=== PATIENT | male | born 1955 | race Caucasian/White ===

== ENCOUNTER 2023-01-25 13:02 | Observation (INO) ==
[2023-01-25 15:06] LABS: BASOPHILS % (AUTO) 0.4 % (0.2-1.0); EOSINOPHILS # (AUTO) 0.3 x10^3/uL (0.0-0.2); EOSINOPHILS % (AUTO) 4.4 % (0.9-2.9); HEMATOCRIT 42.3 % (42.0-54.0); HEMOGLOBIN 14.4 g/dL (13.5-18.0); LYMPHOCYTES # (AUTO) 2.5 X10^3/uL (1.3-2.9); LYMPHOCYTES % (AUTO) 32.4 % (21.0-51.0); MEAN CORPUSCULAR HEMOGLOBIN 29.4 pg (27.0-34.0); MEAN CORPUSCULAR VOLUME 86.5 fL (80.0-100.0); MEAN PLATELET VOLUME 7.4 fL (7.4-11.0); MONOCYTES # (AUTO) 0.7 x10^3/uL (0.3-0.8); MONOCYTES % (AUTO) 9.4 % (0.0-13.0); NEUTROPHILS # (AUTO) 4.2 x10^3/uL (2.2-4.8); NEUTROPHILS % (AUTO) 53.4 % (42.0-75.0); RED BLOOD COUNT 4.89 X10^6/uL (4.7-6.0); RED CELL DISTRIBUTION WIDTH 13.4 % (11.6-16.5); WHITE BLOOD COUNT 7.8 X10^3/uL (3.6-10.0)
[2023-01-25 16:08] LABS: ALANINE AMINOTRANSFERASE 25 Units/L (12-78); ALBUMIN 3.7 g/dL (3.4-5.0); ALKALINE PHOSPHATASE 92 Units/L (46-116); ASPARTATE AMINO TRANSFERASE 24 Units/L (15-37); BLOOD UREA NITROGEN 18 mg/dL (7-18); CARBON DIOXIDE 29.6 mmol/L (21-32); CHLORIDE 105 mmol/L (98-107); CREATININE 1.12 mg/dL (0.70-1.30); SODIUM 140 mmol/L (136-145); TOTAL PROTEIN 7.2 g/dL (6.4-8.2); eGFR NON BLACK RACES > 60 (>60)
[2023-01-25 16:19] VITALS: BMI 29.9
[2023-01-25] MEDS: PROTONIX TAB 40 MG PO SCH (16:19)
[2023-01-25] MEDS: ASPIRIN PO SCH (16:19)
[2023-01-25] MEDS: NS 1,000 ML IV 1,000 ML IV SCH (16:20)
--- NOTE | 2023-01-25 16:33 | EKG ---
Test Reason : chest pain Blood Pressure : */* mmHG Vent. Rate : 58 BPM Atrial Rate : 58 BPM P-R Int : 178 ms QRS Dur : 78 ms QT Int : 442 ms P-R-T Axes : 56 -31 41 degrees QTc Int : 433 ms Sinus bradycardia Left axis deviation Abnormal ECG No previous ECGs available Confirmed by Parth Del Angel ([id number]) on 01/27/2023 8:37:33 AM Referred By: Confirmed By: Parth Del Angel
--- NOTE | 2023-01-25 19:33 | EKG ---
Test Reason : chest pain Blood Pressure : */* mmHG Vent. Rate : 61 BPM Atrial Rate : 61 BPM P-R Int : 182 ms QRS Dur : 82 ms QT Int : 434 ms P-R-T Axes : 67 -24 61 degrees QTc Int : 436 ms Normal sinus rhythm Normal ECG When compared with ECG of 25-JAN-2023 16:23, (Unconfirmed) No significant change was found Confirmed by Parth Del Angel ([id number]) on 01/27/2023 8:36:47 AM Referred By: Confirmed By: Parth Del Angel
[2023-01-25 20:16] LABS: CHOL/HDL RATIO 4.8 (0.0-5.0)
[2023-01-25] MEDS ORDERED: TYLENOL 500 MG TAB EXTRA STRENGTH PO PRN (20:35)
[2023-01-25] MEDS ORDERED: GARLIC 500 MG PO SCH (21:00)
[2023-01-25] MEDS ORDERED: COD LIVER OIL PO SCH (21:00)
[2023-01-25] MEDS ORDERED: [UNRECOGNIZED DRUG - OTHER] PO SCH (21:00)
[2023-01-25] MEDS ORDERED: PATIENT'S HOME MEDICATION (Zinc 50 mg Capsule) PO SCH (21:00)
[2023-01-25] MEDS ORDERED: ASCORBATE CALCIUM 500 MG PO SCH (21:00)
[2023-01-25] MEDS ORDERED: LIPITOR TAB 10 MG PO SCH (21:00)
[2023-01-25] MEDS ORDERED: PRASTERONE 50 MG PO SCH (21:00)
[2023-01-25] MEDS ORDERED: ZANAFLEX PO SCH (21:00)
[2023-01-25] MEDS: COSOPT OPTH OP SCH (21:27)
[2023-01-25] MEDS: XANAX PO SCH (21:27)
--- NOTE | 2023-01-26 00:12 | EKG ---
Test Reason : chest pain Blood Pressure : */* mmHG Vent. Rate : 70 BPM Atrial Rate : 70 BPM P-R Int : 178 ms QRS Dur : 78 ms QT Int : 426 ms P-R-T Axes : 67 -49 55 degrees QTc Int : 460 ms Sinus rhythm with occasional premature ventricular complexes Left anterior fascicular block Abnormal ECG When compared with ECG of 25-JAN-2023 19:27, (Unconfirmed) premature ventricular complexes are now present Confirmed by Parth Del Angel ([id number]) on 01/27/2023 8:36:41 AM Referred By: Confirmed By: Parth Del Angel
[2023-01-26] MEDS: NS 1,000 ML IV 1,000 ML IV SCH ×2 (03:04→04:38)
[2023-01-26 05:09] LABS: BASOPHILS % (AUTO) 0.4 % (0.2-1.0); EOSINOPHILS # (AUTO) 0.3 x10^3/uL (0.0-0.2); EOSINOPHILS % (AUTO) 3.9 % (0.9-2.9); HEMOGLOBIN 13.4 g/dL (13.5-18.0); LYMPHOCYTES # (AUTO) 2.3 X10^3/uL (1.3-2.9); LYMPHOCYTES % (AUTO) 26.8 % (21.0-51.0); MEAN CORPUSCULAR HEMOGLOBIN 29.7 pg (27.0-34.0); MEAN CORPUSCULAR HGB CONC 34.4 g/dL (33.0-35.0); MEAN CORPUSCULAR VOLUME 86.3 fL (80.0-100.0); MEAN PLATELET VOLUME 7.5 fL (7.4-11.0); MONOCYTES # (AUTO) 0.9 x10^3/uL (0.3-0.8); MONOCYTES % (AUTO) 10.4 % (0.0-13.0); NEUTROPHILS # (AUTO) 4.9 x10^3/uL (2.2-4.8); NEUTROPHILS % (AUTO) 58.5 % (42.0-75.0); RED BLOOD COUNT 4.52 X10^6/uL (4.7-6.0); RED CELL DISTRIBUTION WIDTH 13.3 % (11.6-16.5); WHITE BLOOD COUNT 8.4 X10^3/uL (3.6-10.0)
[2023-01-26 05:24] LABS: ALANINE AMINOTRANSFERASE 19 Units/L (12-78); ALBUMIN 3.2 g/dL (3.4-5.0); ALKALINE PHOSPHATASE 79 Units/L (46-116); ASPARTATE AMINO TRANSFERASE 16 Units/L (15-37); BLOOD UREA NITROGEN 16 mg/dL (7-18); CALCIUM 8.6 mg/dL (8.5-10.1); CARBON DIOXIDE 27.6 mmol/L (21-32); CHLORIDE 106 mmol/L (98-107); COR CA(FOR HYPOALB) 9.2 mg/dL (8.5-10.1); CREATININE 1.01 mg/dL (0.70-1.30); SODIUM 140 mmol/L (136-145); TOTAL PROTEIN 6.2 g/dL (6.4-8.2); eGFR NON BLACK RACES > 60 (>60)
--- NOTE | 2023-01-26 06:03 | RAD ---
HISTORYCHEST PAINSTUDNORMA, PA/LAT ADULTCOMPARISONNoneFINDINGSThe cardiomediastinal silhouette is normal in size. Mild elevation of the right hemidiaphragm. No acute airspace disease. No pneumothorax or effusion. The bony thorax appears intact.IMPRESSIONNo acute cardiopulmonary disease.Electronically signed by: DOROTA SOTO (Jan 26, 2023 06:02:22)
[2023-01-26] MEDS: PROTONIX TAB 40 MG PO SCH (08:42)
[2023-01-26] MEDS: XANAX PO SCH (08:42)
[2023-01-26] MEDS: ASPIRIN PO SCH (08:53)
[2023-01-26] MEDS: COSOPT OPTH OP SCH (08:53)
[2023-01-26 08:55] VITALS: BP 127/75
[2023-01-26] MEDS ORDERED: MV MN FOLIC LUTEIN HERBAL PO SCH (09:00)
[2023-01-26] MEDS ORDERED: GREEN TEA LEAF EXTRACT 250 MG PO SCH (09:00)
[2023-01-26] MEDS ORDERED: TAB-A-VITE PO SCH (09:00)
[2023-01-26] MEDS ORDERED: VITAMIN D3 125 mcg (5,000 UNITS) PO SCH (09:00)
[2023-01-26] MEDS ORDERED: VITAMIN B12 FOLIC ACID PO SCH (09:00)
[2023-01-26] MEDS ORDERED: [UNRECOGNIZED DRUG - OTHER] PO SCH (09:00)
[2023-01-26] MEDS ORDERED: LOVENOX INJ 40 MG SYR SC SCH (09:00)
[2023-01-26] MEDS ORDERED: ASPIRIN 81 MG CHEWTAB PO SCH (09:00)
[2023-01-26] MEDS ORDERED: VITAMIN C PO SCH (22:00)
[2023-01-26] MEDS ORDERED: ZINC SULFATE PO SCH (23:00)
--- NOTE | 2023-01-30 08:59 | DR.CARTERS ---
Short Stay Summary - Admission Date Date of Admission: 01/25/23 - Discharge Date Discharge Date: 01/26/23 - Admission Diagnoses (1) Chest pain, rule out acute myocardial infarction Status: Acute (2) GERD (gastroesophageal reflux disease) Status: Chronic (3) Mixed hyperlipidemia Status: Chronic - Hospital Course Hospital Course: IS A 67 YEAR OLD PATIENT OF OURS WHO WAS ADMITTED TO THE HOSPITAL A DIRECT ADMISSION, OBSERVATION STATUS, FOR EVALUATION AND TREATMENT OF CHEST FLUTTERING THAT STARTED TWO DAYS PRIOR TO ADMISSION. PATIENT DENIES CHEST PAIN, ONLY A FLUTTERING SENSATION AND PALPITATIONS. HE REPORTED TAKING HIS MUSCLE RELAXERS AT HOME, HOWEVER, NO IMPROVEMENT IN SYMPTOMS NOTED. HE HAS A PAST MEDICAL HISTORY OF GLAUCOMA, ASTHMA, GASTROINTESTINAL ULCERS, ANXIETY, HYPERLIPIDEMIA, TONSILLECTOMY, MULTIPLE EYE SURGERIES. HE HAS A FAMILY HISTORY OF COLON CANCER. HE DENIES USE OF ALCOHOL OR TOBACCO PRODUCTS. ON ARRIVAL TO THE HOSPITAL, HIS VITALS WERE: 97.9-62-18-97%-127/74. LABS WERE OBTAINED. WBC 7.8, RBC 4.89, HGB 14.4, HCT 42.3, PLT COUNT 235, SODIUM 140, POTASSIUM 5.0, CHLORIDE 105, BUN 18, CREATININE 1.12, GLUCOSE 90, CALCIUM 9.0, AST 24, ALT 25, ALK PHOS 92, TROPONIN 6.0, TOTAL PROTEIN 7.2, ALBUMIN 3.7, TRIGLYCERIDES 243, CHOLESTEROL 171, LDL 86, HDL 36. A CHEST XRAY WAS OBTAINED AND REVEALED: NO ACUTE CARDIOPULMONARY DISEASE. EKG REVEALED: SINUS BRADYCARDIA WITH HR 58. HE WAS STARTED ON NORMAL SALINE AT 75 ML/HR, LOVENOX 40MG SC DAILY, TYLENOL 500MG PO Q8H PRN, ASPIRIN 325MG PO DAILY, ATORVASTATIN 10MG PO HS, PANTOPRAZOLE 40MG DAILY. HIS HOME MEDICATIONS OF PROBIOTICS 1 CAPSULE AT BEDTIME, ASCORBATE CALCIUM 500MG HS, COD LIVER OIL 1 CAPSULE HS, GARLIC 500MG HS, MULTIVITAMIN DAILY, PRASTERONE 50MG HS, VITAMIN B12 DAILY, ZINC 220MG HS, ALPRAZOLAM 0.25MG BID, CHOLECALCIFEROL 125MCG DAILY, TIZANIDINE 4MG HS, AND DORZOLAMIDE HCL- TIMOLOL DROPS BID WERE ALSO RESUMED. WE WILL REPEAT SERIAL TROPONIN LEVELS AND EKGs. WE ALSO PLANNED TO OBTAIN AN EKG THE FOLLOWING MORNING. OTHERWISE, WE PLANNED TO FOLLOW-UP WITH AM LABS AND CONTINUE TO MONITOR. ON THE MORNING FOLLOWING ADMISSION, PATIENT WAS ALERT AND ORIENTED, LYING IN BED ON MORNING ROUNDS. HE DENIES CHEST PAIN. HE REPORTS HAVING ANOTHER EPISODE OF FLUTTERING THROUGHOUT THE NIGHT, BUT DENIES HAVING ANY SYMPTOMS THIS MORNING. ON EXAMINATION, HEART IS REGULAR IN RATE AND RHYTHM. BILATERAL LUNGS ARE CLEAR TO AUSCULTATION. ABDOMEN IS ROUND, SOFT, AND NON-TENDER WITH NORMAL BOWEL SOUNDS NOTED IN ALL QUADRANTS. NO UPPER OR LOWER EXTREMITY EDEMA NOTED. HIS VITALS THIS MORNING ARE: 98.0-64-18-98%-127/75. LABS WERE OBTAINED. WBC 8.4, RBC 4.52, HGB 13.4, HCT 39.0, PLT COUNT 209, SODIUM 140, POTASSIUM 4.2, CHLORIDE 106, BUN 16, CREATININE 1.01, AST 16, ALT 19, ALK PHOS 79, TOTAL PROTEIN 6.2, ALBUMIN 3.2. TROPONINS HAVE REMAINED NORMAL. MOST RECENT EKG REVEALED: SINUS RHYTHM WITH OCCASIONAL PREMATURE VENTRICULAR COMPLEXES. HEARTRATE 70. AN ECHO WAS OBTAINED. IT REVEALED AN EJECTION FRACTION OF 63%, GRADE 1 DIASTOLIC DYSFUNCTION. WE PLANNED FOR DISCHARGE. INSTRUCTIONS FOR MEDICATIONS AND FOLLOW-UP WERE DISCUSSED WITH PATIENT. HE VERBALIZED UNDERSTANDING OF ALL ORDERS. HE WAS GIVEN PRESCRIPTIONS FOR ECOTRIN 325MG DAILY AND ATORVASTATIN 10MG HS. HE WAS INSTRUCTED TO CONTINUE HIS OTHER MEDICATIONS WITH NO CHANGES MADE TO DOSAGES. WE WILL REFER PATIENT TO , [facility], IN [place]. HE IS OTHERWISE INSTRUCTED TO FOLLOW-UP IN THE OFFICE ON 02/05/23 AT 09:30. PATIENT WAS DISCHARGED HOME WITH HIS FAMILY IN STABLE CONDITION. TIME SPENT ON CLINICAL ASSESSMENT, REVIWING LABS AND IMAGING, DECISION MAKING, DISCHARG INSTRUCTIONS, PREPARING DISCHARGE INFORMATION, AND DOCUMENTATION GREATER THAN 75 MINUTES. - Discharge Medications Discharge Medications: Home Medication List Lactobacillus rhamnosus GG 10 billion cell capsule (Culturelle) 1 cap PO QPM 01/25/23 [History] acetaminophen 500 mg tablet 500 mg PO Q8-10H PRN Pain 01/25/23 [History] alprazolam 0.25 mg tablet 1 tab PO BID 01/25/23 [History] ascorbate calcium (vitamin C) 500 mg tablet 500 mg PO QPM 01/25/23 [History] cholecalciferol (vitamin D3) 125 mcg (5,000 unit) tablet (Vitamin D3) 125 mcg PO QDAY 01/25/23 [History] cod liver oil 1 cap PO QPM 01/25/23 [History] dorzolamide 22.3 mg-timolol 6.8 mg/mL eye drops 1 drp ophthalmic (eye) BID 01/25/23 [History] garlic 500 mg capsule 500 mg PO QPM 01/25/23 [History] green tea leaf extract 250 mg capsule (Green Tea) 250 mg PO QAM 01/25/23 [History] [id number] 120 mcg-lutein 150 mcg-herb 50 mg chewable tablet (Alive Men's 50 Plus Multivitamin) 1 tab PO QAM 01/25/23 [History] pantoprazole 40 mg tablet,delayed release 1 tab PO QPM 01/25/23 [History] prasterone (dhea) 50 mg capsule (DHEA) 50 mg PO QPM 01/25/23 [History] tizanidine 4 mg tablet 1 tab PO QPM 01/25/23 [History] vitamin B12 500 mcg-folic acid 400 mcg tablet 1 tab PO QDAY 01/25/23 [History] zinc 50 mg capsule 50 mg PO QPM 01/25/23 [History] aspirin 325 mg tablet,delayed release (Ecotrin) 325 mg PO QDAY #90 tabs 01/26/23 [Rx] atorvastatin 10 mg tablet 10 mg PO HS #30 tabs 01/26/23 [Rx] Prescriptions: aspirin [Ecotrin] Yang Cunha atorvastatin Yang Cunha - Discharge Plan Disposition: 01 HOME, SELF-CARE Condition: Stable Prescriptions: aspirin [Ecotrin] 325 mg PO QDAY #90 tabs atorvastatin 10 mg PO HS #30 tabs - Follow up/Referrals Follow up/Referrals: WERNER EVERETT [Primary Care Provider] - 02/05/23 9:30 am Cory Wood [REFERRING] - (Referral sent on 01/26/23 - Office will call with appointment.) - Instructions Instructions: Nonspecific Chest Pain, Adult, [id number], Aspirin and Your Heart, Palpitations, [id number] Additional Instructions: DIET TOLERATED. ACTIVITY TOLERATED.
== END 2023-01-26 12:25 | disposition home or self-care (01) ==
LOC: EDBD → MED/SURG
PROVIDERS: ADMIT Internal Medicine; ATTEND Internal Medicine
DX: R07.89 Other chest pain; R79.89 Other specified abnormal findings of blood chemistry; Z80.0 Family history of malignant neoplasm of digestive organs; Z79.899 Other long term (current) drug therapy; K21.9 Gastro-esophageal reflux disease without esophagitis; R00.0 Tachycardia, unspecified; R06.02 Shortness of breath; R94.31 Abnormal electrocardiogram [ECG] [EKG]; F41.8 Other specified anxiety disorders; E78.1 Pure hyperglyceridemia